=== PATIENT | male | born 1945 | race American Indian/Alaskan Native ===

== ENCOUNTER 2017-05-31 02:25 | Emergency (ER) | payer OTHER ==
[2017-05-31 02:49] VITALS: RESP 20
[2017-05-31 03:27] LABS: SQUAMOUS EPITHIAL < 1 /hpf (0-5); URINE BILIRUBIN NEGATIVE (NEGATIVE); URINE BLOOD NEGATIVE (NEGATIVE); URINE CLARITY Clear (Clear); URINE COLOR Yellow (YELLOW); URINE GLUCOSE (UA) NORMAL (Normal); URINE LEUKOCYTE ESTERASE NEG Leu/uL (Negative); URINE NITRATE NEGATIVE (NEGATIVE); URINE PROTEIN NEGATIVE (NEGATIVE); URINE UROBILINOGEN NORMAL mg/dL (0.2-1.0)
--- NOTE | 2017-05-31 04:14 | C.PDOC ---
History Of Present Illness 71 y/o male presents to ER with c/o of urinary retention x 2 days. Pt just returned to the [place] from [place] and states had similar problems while in [place] and was seen and released few days ago. Pt c/o of some suprapubic pressure. Denies fever, vomiting, dysuria, hematuria or abdominal pain Time Seen by Provider: 05/31/17 03:00 Chief Complaint (Nursing): Male Genitourinary History Per: Patient History/Exam Limitations: no limitations Current Symptoms Are (Timing): Still Present Quality Of Discomfort: Pressure (suprapubic) Associated Symptoms: Urinary Symptoms. denies: Fever, Nausea, Vomiting, Back Pain, Chest Pain Recent travel outside of the [place]: Yes Past Medical History Vital Signs: Last Vital Signs Temp 97.7 F 05/31/17 04:28 Pulse 68 05/31/17 04:28 Resp 20 05/31/17 04:28 BP 126/73 05/31/17 04:28 Pulse Ox 99 05/31/17 04:28 - Medical History PMH: Benign Prostatic Hyperplasia, HTN Family History: States: No Known Family Hx, Unknown Family Hx - Social History Hx Alcohol Use: No Hx Substance Use: No - Immunization History Hx Tetanus Toxoid Vaccination: No Hx Influenza Vaccination: No Hx Pneumococcal Vaccination: No Review Of Systems Constitutional: Negative for: Fever Gastrointestinal: Negative for: Vomiting, Abdominal Pain, Diarrhea Genitourinary: Positive for: Other (urine retention). Negative for: Dysuria, Hematuria Physical Exam - Physical Exam Appears: Well, Non-toxic, No Acute Distress Skin: Normal Color Eye(s): bilateral: Normal Inspection Cardiovascular: Rhythm Regular Respiratory: Normal Breath Sounds, No Wheezing Gastrointestinal/Abdominal: Bowel Sounds, Soft, Distention (over the bladder) Back: No CVA Tenderness ED Course And Treatment O2 Sat by Pulse Oximetry: 96 Pulse Ox Interpretation: Normal Progress Note: Zelaya cath was inseted by RN with 1700 ml of urine collected. UA reviewed. Pt is now comfortable in NAD will follow up with Dr Duarte. Pt is dc with leg bag and will follow up with Dr duarte Reevaluation Time: 04:24 Reassessment Condition: Improved Disposition - Disposition Referrals: Raúl Duarte Jr., MD [Staff Provider] - Disposition: HOME/ ROUTINE Disposition Time: 04:12 Condition: STABLE Additional Instructions: Please follow up today or tomorrow with Dr Gerald Christiansen for appointment Return to ER if worse Instructions: Urinary Retention in Men (ED) Forms: [facility] (Chinese) - Clinical Impression Clinical Impression: Urinary retention
[2017-05-31 04:30] VITALS: BP 126/73; PULSE 68; TEMP 97.7
[2017-05-31 05:02] VITALS: O2SAT 96
== END 2017-05-31 05:18 | disposition home or self-care (01) ==
LOC: C.ER 02:25
DX: N40.1 Benign prostatic hyperplasia with lower urinary tract symptoms (principal); R33.8 Other retention of urine

== ENCOUNTER 2017-06-12 10:45 | Day surgery (SDC) | payer OTHER ==
[2017-06-09 09:47] VITALS: BMI 22.3
[2017-06-12] MEDS ORDERED: Lidocaine 2% Jelly (Uro-Jet) ONE (13:46)
[2017-06-12] MEDS ORDERED: Ciprofloxacin 400mg/200ml D5W 400 MG/200 ML BAG IVPB ONE (13:46)
[2017-06-12] MEDS ORDERED: Propofol 10 mg/ml Inj (20 ML) ONE (14:00)
[2017-06-12] MEDS ORDERED: Midazolam 2 MG/2 ML VIAL ONE (14:00)
--- NOTE | 2017-06-12 14:24 | PCM.SURG1 ---
Surgeon's Initial Post Op Note - Surgeon's Notes Surgeon: Gerald Aws Consultant: ANA MARIA Type of Anesthesia: General LMA Anesthesia Administered By: staff Pre-Operative Diagnosis: BPH/URINARY RETENTION Operative Findings: bph/chang/EP Post-Operative Diagnosis: bph CHANG Operation Performed: cySTOSCOPY Specimen/Specimens Removed: NA Estimated Blood Loss: EBL {In ML}: 0 Blood Products Given: N/A Drains Used: No Drains Post-Op Condition: Good Date of Surgery/Procedure: 06/12/17 Time of Surgery/Procedure: 14:24
[2017-06-12] MEDS ORDERED: Gentamicin 160 MG in Sodium Chloride 0.9% 100 ML IVPB ONE (14:30)
--- NOTE | 2017-06-12 15:22 | OP ---
PROCEDURE DATE: 06/12/2017 PREOPERATIVE DIAGNOSIS: Urinary retention. POSTOPERATIVE DIAGNOSES: Urinary retention secondary to benign prostatic hypertrophy. FINDINGS: Trilobe hypertrophy of the prostate with significant outlet obstruction. DESCRIPTION OF PROCEDURE: Prior to the procedure, it was noted that the 06/09/2017 urine culture obtained from the catheter bag was positive for Klebsiella pneumonia. Accordingly, the patient was given the appropriate antibiotics, gentamicin and Cipro based on the sensitivities. He was brought into the room. After a full detailed explanation of this procedure, its risks, complications and all other ways of managing urinary retention were explained to the patient, he was willing to accept the risks. He was brought into the room and he was draped and prepped in the usual manner. Once it was confirmed the antibiotics had been given, 2% Xylocaine jelly was inserted per urethra and the patient was cystoscoped with #21 Storz panendoscope. The pendulous and membranous urethra were normal. Prostatic urethra showed trilobe hypertrophy with significant outlet obstruction. The bladder was entered atraumatically. There was no evidence of urothelial tumors or stones. Based on the above findings, the patient is a candidate for GreenLight laser prostatectomy since he failed to void on Flomax. We will place the patient on Proscar, reinsert the Zelaya catheter and give him Cipro to take for 1 week. He will be scheduled for GreenLight laser on the next available day. Both the patient and son were advised of the findings and the need for further procedures and agreed. Raúl Duarte MD
[2017-06-12 17:52] VITALS: BP 148/75; PULSE 72; RESP 18; TEMP 97.1; O2SAT 97
== END 2017-06-12 17:20 | disposition home or self-care (01) ==
LOC: C.SDS 10:45
PROVIDERS: ATTEND Urology
DX: N40.1 Benign prostatic hyperplasia with lower urinary tract symptoms (principal); N32.0 Bladder-neck obstruction; R33.8 Other retention of urine
CPT/HCPCS: 36415; 52000; 84132; J0360; J0744; J1580

== ENCOUNTER 2017-07-10 09:17 | Day surgery (SDC) | payer OTHER ==
[2017-06-09 09:46] VITALS: BMI 22.3
[2017-07-10] MEDS ORDERED: Gentamicin 160 MG in Sodium Chloride 0.9% 100 ML IVPB ONE (14:00)
[2017-07-10] MEDS ORDERED: Ciprofloxacin 400mg/200ml D5W 400 MG/200 ML BAG IVPB ONE (14:19)
[2017-07-10] MEDS ORDERED: Lidocaine 2% Jelly (Uro-Jet) ONE (14:19)
[2017-07-10] MEDS ORDERED: Propofol 10 mg/ml Inj (20 ML) ONE (15:10)
[2017-07-10] MEDS ORDERED: Succinylcholine Chloride 20 mg/ml Syr (5 ml) IV ONE (15:14)
[2017-07-10] MEDS ORDERED: Rocuronium 10 mg/ml (10 ml) ONE (15:15)
[2017-07-10] MEDS ORDERED: HYDROmorphone 0.5 mg/0.5 ml ISec IVP PRN (15:28)
--- NOTE | 2017-07-10 16:17 | PCM.SURG1 ---
Surgeon's Initial Post Op Note - Surgeon's Notes Surgeon: Gerald Patient Account Specialist: N/A Type of Anesthesia: General Endo Anesthesia Administered By: staff Pre-Operative Diagnosis: BPH/Urinary Retention Operative Findings: BPH w OLIVEIRA Post-Operative Diagnosis: BPH OLIVEIRA Urinary retention Operation Performed: TULAP Specimen/Specimens Removed: na Estimated Blood Loss: EBL {In ML}: 0 Blood Products Given: N/A Drains Used: No Drains Post-Op Condition: Good Date of Surgery/Procedure: 07/10/17 Time of Surgery/Procedure: 16:17
[2017-07-10] MEDS ORDERED: Metoprolol 1 mg/ml Inj IVP ONE ×2 (16:44→17:03)
[2017-07-10 18:23] VITALS: RESP 16
[2017-07-10 18:53] VITALS: BP 189/96; PULSE 89; TEMP 97.4; O2SAT 100
--- NOTE | 2017-07-11 03:47 | OP ---
PROCEDURE DATE: 07/10/2017 PREOPERATIVE DIAGNOSES: Benign prostatic hypertrophy, bladder outlet obstruction, urinary retention. POSTOPERATIVE DIAGNOSES: Benign prostatic hypertrophy, bladder outlet obstruction, urinary retention. PROCEDURE: TULAP (transurethral laser ablation of the prostate). SURGEON: Raúl Duarte MD. FINDINGS: Trilobar hypertrophy of the prostate with significant bladder outlet obstruction, compensatory hypertrophy of the bladder. DESCRIPTION OF PROCEDURE: The patient was asked to sign a detailed informed consent after he received an explanation of the risks, complications, and alternates to green light laser prostatectomy. He consented to the risks and agreed to the procedure. He was brought into the room and a time-out was taken according to the rules and regulations of [facility]. The laser cystoscope was inserted and the previous cystoscope workup findings were confirmed. The laser resectoscope was then inserted within the laser sheath and vaporization of the prostate was started at 11 o'clock and carried down 6 o'clock on the right lateral lobe from just distal to the bladder neck to just proximal to the verumontanum. The left tissue, the base tissue and roof tissue were vaporized in a similar fashion. This resulted in excellent voiding channel without any significant bleeding. The bladder was filled with normal saline and the #22 5 mL catheter was inserted, this drained clear urine. Based on the above findings, the patient will be seen in our office tomorrow for further removal. He has been given the prescription for Cipro, Flomax, and finasteride. He will follow up in our office and notify us of any complications. Raúl Duarte MD
== END 2017-07-10 19:01 | disposition home or self-care (01) ==
LOC: C.SDS 09:17
PROVIDERS: ATTEND Urology
DX: N40.1 Benign prostatic hyperplasia with lower urinary tract symptoms (principal); R33.8 Other retention of urine; N13.8 Other obstructive and reflux uropathy
CPT/HCPCS: 52648; J0360; J0744; J1580